=== PATIENT | male | born 1960 | race African-American/Black ===

== ENCOUNTER 2017-09-04 10:30 | Inpatient (IN) | payer OTHER ==
[~2017-09-04] VITALS: Ht 167.6 cm; Wt 79.8 kg
[~2017-09-04 10:30] MED LIST: MEDROLPACK PO; NEURONTIN600 MG PO
[2017-09-04] MEDS ORDERED: HUMALOG100 UNIT/1 (12:10)
[2017-09-04] MEDS ORDERED: ASA81 MG PO (12:11)
[2017-09-04] MEDS ORDERED: PERCOCET 10-321 EACH PO (12:11)
[2017-09-12] MEDS ORDERED: DOCUSATE SODIU100 MG PO (09:12)
[2017-09-12] MEDS ORDERED: CLONAZEPAM1 MG PO (09:13)
[2017-09-12] MEDS ORDERED: PERCOCET 5-3251 EACH PO (09:13)
== END 2017-09-12 12:33 | disposition home or self-care (01) | DRG 472 ==
LOC: PED 09-11 04:19 → O/R 09-11 04:19 → SURH 09-11 10:00 → PED 09-11 17:28
PROVIDERS: Orthopaedic Surgery Orthopaedic Surgery of the Spine
PROC: 0RG20A0 Fusion of 2 or more Cervical Vertebral Joints with Interbody Fusion Device, Anterior Approach, Anterior Column, Open Approach (ICD-10-PCS; 2017-09-11)
PROC: 0RT30ZZ Resection of Cervical Vertebral Disc, Open Approach (ICD-10-PCS; principal; 2017-09-11 10:00)
DX: M47.12 Other spondylosis with myelopathy, cervical region (principal); M50.023 Cervical disc disorder at C6-C7 level with myelopathy; I10 Essential (primary) hypertension; E11.9 Type 2 diabetes mellitus without complications; K59.09 Other constipation; G24.3 Spasmodic torticollis

== ENCOUNTER 2017-12-24 08:56 | Emergency (ER) | payer OTHER ==
[~2017-12-24] VITALS: Ht 167.6 cm; Wt 79.4 kg
[~2017-12-24 08:56] MED LIST changes: +ASA81 MG PO; +CLONAZEPAM1 MG PO; +DOCUSATE SODIU100 MG PO; +HUMALOG100 UNIT/1; +PERCOCET 10-321 EACH PO; +PERCOCET 5-3251 EACH PO
== END 2017-12-24 11:51 | disposition home or self-care (01) ==
LOC: ER 08:56
DX: N20.9 Urinary calculus, unspecified (principal)

== ENCOUNTER 2020-03-09 07:22 | Emergency (ER) | payer OTHER ==
[~2020-03-09] VITALS: Ht 167.6 cm; Wt 76.7 kg
[2020-03-09] MEDS ORDERED: TRAMADOL HCL50 MG PO (07:34)
[2020-03-09] MEDS ORDERED: ADMELOG100 UNIT/1 SQ (07:34)
[2020-03-09] MEDS ORDERED: ROSUVASTATIN CA40 MG PO (07:34)
== END 2020-03-09 14:05 | disposition home or self-care (01) ==
LOC: ER 07:22
DX: J32.8 Other chronic sinusitis (principal); N39.0 Urinary tract infection, site not specified; Z03.818 Encounter for observation for suspected exposure to other biological agents ruled out

== ENCOUNTER → 2020-05-13 | Outpatient (CLI) | payer OTHER ==
[~2020-05-13] MED LIST changes: +ADMELOG100 UNIT/1 SQ; +ROSUVASTATIN CA40 MG PO; +TRAMADOL HCL50 MG PO
== END | disposition home or self-care (01) ==
LOC: RAD 08:48 → RX STUDY 10:15
PROVIDERS: ATTEND Family Medicine Addiction Medicine
DX: K22.8 Other specified diseases of esophagus (principal); H90.3 Sensorineural hearing loss, bilateral; J32.4 Chronic pansinusitis; R13.19 Other dysphagia

== ENCOUNTER 2021-06-27 13:29 | Emergency (ER) | payer OTHER ==
[~2021-06-27] VITALS: Ht 193 cm; Wt 78.9 kg
[2021-06-27] MEDS ORDERED: OXYC1TAB9 PO (14:00)
[2021-06-27] MEDS ORDERED: TRAMADOL HCL50 MG PO (15:52)
== END 2021-06-27 16:08 | disposition home or self-care (01) ==
LOC: ER 13:29
DX: S20.229A Contusion of unspecified back wall of thorax, initial encounter (principal); W10.9XXA Fall (on) (from) unspecified stairs and steps, initial encounter; Y93.9 Activity, unspecified; Y92.019 Unspecified place in single-family (private) house as the place of occurrence of the external cause

== ENCOUNTER 2021-08-25 11:29 | Emergency (ER) | payer OTHER ==
[~2021-08-25] VITALS: Ht 167.6 cm; Wt 78.0 kg
[~2021-08-25 11:29] MED LIST changes: +OXYC1TAB9 PO
== END 2021-08-25 21:46 | disposition home or self-care (01) ==
LOC: ER 11:29
DX: R10.32 Left lower quadrant pain (principal); E11.9 Type 2 diabetes mellitus without complications; Z79.4 Long term (current) use of insulin; Z88.8 Allergy status to other drugs, medicaments and biological substances; Z91.018 Allergy to other foods; N45.3 Epididymo-orchitis

== ENCOUNTER 2022-04-07 18:22 | Emergency (ER) | payer OTHER ==
[~2022-04-07] VITALS: Ht 167.6 cm; Wt 79.8 kg
== END 2022-04-07 23:30 | disposition home or self-care (01) ==
LOC: ER 18:22
DX: M94.0 Chondrocostal junction syndrome [Tietze] (principal); E11.9 Type 2 diabetes mellitus without complications; Z79.84 Long term (current) use of oral hypoglycemic drugs; Z88.1 Allergy status to other antibiotic agents

== ENCOUNTER 2022-08-11 11:40 | Inpatient (IN) | payer OTHER ==
[~2022-08-11] VITALS: Ht 167.6 cm; Wt 79.8 kg
[2022-08-12] MEDS ORDERED: PERCOCE PO (11:04)
[2022-08-18] MEDS ORDERED: COLACE100 MG PO (09:38)
[2022-08-18] MEDS ORDERED: MEDROLPACK PO (09:38)
== END 2022-08-19 13:45 | disposition home or self-care (01) | DRG 473 ==
LOC: O/R 08-18 08:48 → SURG 08-18 10:30 → PED 08-18 13:24 → SURG 08-18 18:15 → PED 08-19 13:45
PROVIDERS: ADMIT Orthopaedic Surgery Orthopaedic Surgery of the Spine; ATTEND Orthopaedic Surgery Orthopaedic Surgery of the Spine
PROC: 0RT50ZZ Resection of Cervicothoracic Vertebral Disc, Open Approach (ICD-10-PCS; 2022-08-18)
PROC: 07DS0ZZ Extraction of Vertebral Bone Marrow, Open Approach (ICD-10-PCS; 2022-08-18)
PROC: 0RG40A0 Fusion of Cervicothoracic Vertebral Joint with Interbody Fusion Device, Anterior Approach, Anterior Column, Open Approach (ICD-10-PCS; principal; 2022-08-18 18:15)
DX: M43.03 Spondylolysis, cervicothoracic region (principal); E11.9 Type 2 diabetes mellitus without complications; M51.34 Other intervertebral disc degeneration, thoracic region; Z79.4 Long term (current) use of insulin

== ENCOUNTER 2023-03-25 17:59 | Emergency (ER) | payer OTHER ==
[~2023-03-25] VITALS: Ht 167.6 cm; Wt 78.9 kg
[~2023-03-25 17:59] MED LIST changes: +COLACE100 MG PO; +PERCOCE PO
== END 2023-03-25 21:10 | disposition home or self-care (01) ==
LOC: ER 18:00
DX: M54.2 Cervicalgia (principal); M25.519 Pain in unspecified shoulder; Z88.1 Allergy status to other antibiotic agents; Z16.23 Resistance to quinolones and fluoroquinolones
CPT/HCPCS: 72040; 73020; 96372; 99283; J1885; J2360

== ENCOUNTER 2023-11-15 21:28 | Emergency (ER) | payer OTHER ==
[~2023-11-15] VITALS: Ht 167.6 cm; Wt 78.9 kg
[2023-11-15 23:09] LABS: HEMATOCRIT 43.5 % (39.0-48.0); HEMOGLOBIN 14.8 g/dL (13-16.00); MEAN CELL VOLUME 89.2 fL (80.0-100.00); MEAN CORPUSCULAR HEMOGLOBIN 30.3 pg (27.00-32.0); PLATELET COUNT 290 K/uL (150-450); RED BLOOD COUNT 4.87 M/uL (4.00-6.00)
[2023-11-15 23:09] LABS: PH,URINE 6.5 (5.0-8.0); URINE APPEARANCE Clear; URINE BILIRRUBIN Negative (NEGATIVE); URINE BLOOD Negative; URINE COLOR Yellow; URINE KETONE Trace (NEGATIVE); URINE LEUKOCYTE Negative; URINE NITRATE Negative; URINE PROTEIN Negative (NEGATIVE)
[2023-11-15 23:13] LABS: URINE BACTERIA 6.2 uL (0.0-1933); URINE RBC 6.7 uL (0.0-20.8)
[2023-11-15 23:41] LABS: URINE CAST 0.15 uL (0.0-1.40); URINE EPITHELIAL CELLS 0.6 uL (0.0-38.8); URINE GLUCOSE >=1000 MG/DL (NEGATIVE); URINE WBC 1.5 uL (0.0-23.2)
[2023-11-15] MEDS ORDERED: KETOROLAC TROMETHAMINE 30 MG VIAL IV ONE (23:45)
[2023-11-15 23:51] LABS: ALBUMIN 4.1 gm/dL (3.4-5.0); BILIRUBIN TOTAL 0.58 mg/dL (0.3-1.2); CALCIUM 9.2 mg/dL (8.5-10.1); CREATININE SERUM 1.1 mg/dL (0.70-1.30); GFR 67.18; POTASSIUM 4.2 mEq/L (3.5-5.1); PROSTATIC SPECIFIC ANTIGEN 0.711 NG/ML (0.010-4.00); TOTAL PROTEIN 8.1 gm/dL (6.4-8.2)
[2023-11-15] MEDS ORDERED: KETOROLAC TROMETHAMINE 30 MG VIAL ONE (23:59)
== END 2023-11-16 00:04 | disposition home or self-care (01) ==
LOC: ER 21:30
PROVIDERS: General Practice
DX: R10.9 Unspecified abdominal pain (principal); Z88.8 Allergy status to other drugs, medicaments and biological substances; E11.65 Type 2 diabetes mellitus with hyperglycemia; Z79.4 Long term (current) use of insulin; I10 Essential (primary) hypertension
CPT/HCPCS: 36415; 96372; 99282; J1885

== ENCOUNTER 2024-06-18 15:35 | Emergency (ER) | payer OTHER ==
[~2024-06-18] VITALS: Ht 167.6 cm; Wt 76.7 kg
[2024-06-18] MEDS ORDERED: EZETIMIBE10 MG PO (16:07)
[2024-06-18 16:08] VITALS: BP 132/68; O2SAT 98
[2024-06-18] MEDS ORDERED: MECLIZINE HCL 25 MG TABLET PO STA (18:01)
[2024-06-18] MEDS ORDERED: DEXAMETHASONE SODIUM PHOSPHATE 4 MG/ML VIAL IM STA (18:01)
[2024-06-18] MEDS ORDERED: DEXAMETHASONE SODIUM PHOSPHATE 4 MG/ML VIAL ONE (18:04)
[2024-06-18] MEDS ORDERED: MECLIZINE HCL 25 MG TABLET PO ONE (18:04)
[2024-06-18 18:31] LABS: HEMATOCRIT 42.6 % (39.0-48.0); HEMOGLOBIN 14.5 g/dL (13-16.00); MEAN CELL VOLUME 89.4 fL (80.0-100.00); MEAN CORPUSCULAR HEMOGLOBIN 30.5 pg (27.00-32.0); MEAN CORPUSCULAR HGB CONC 34.1 g/dl (32.0-36.0); PLATELET COUNT 324 K/uL (150-450); RED BLOOD COUNT 4.76 M/uL (4.00-6.00); RED CELL DISTRIBUTION WIDTH 14.6 % (11.5-14.5)
[2024-06-18 18:33] LABS: ERYTHROCYTE SEDIMENTATION RATE 30 mm/hr
[2024-06-18 18:56] LABS: ALBUMIN 3.9 gm/dL (3.4-5.0); BILIRUBIN TOTAL 0.39 mg/dL (0.3-1.2); CALCIUM 9.2 mg/dL (8.5-10.1); CREATININE SERUM 0.96 mg/dL (0.70-1.30); GFR 78.37; GLOBULINA 3.9 G/DL (2.4-3.5); POTASSIUM 4.4 mEq/L (3.5-5.1); TOTAL PROTEIN 7.8 gm/dL (6.4-8.2)
[2024-06-18 18:57] LABS: C-REACTIVE PROTEIN 0.83 MG/DL (0.00-0.29)
[2024-06-18] MEDS ORDERED: CARBAMAZEPINE100 M1 PO (19:42)
[2024-06-18] MEDS ORDERED: MOTION SICKNESS25 M1 PO (19:42)
== END 2024-06-18 19:47 | disposition home or self-care (01) ==
LOC: ER 15:36
PROVIDERS: General Practice
DX: R42 Dizziness and giddiness (principal); M79.2 Neuralgia and neuritis, unspecified; E11.9 Type 2 diabetes mellitus without complications; E78.5 Hyperlipidemia, unspecified; Z88.1 Allergy status to other antibiotic agents

== ENCOUNTER 2024-11-06 16:59 | Emergency (ER) | payer OTHER ==
[~2024-11-06] VITALS: Ht 167.6 cm; Wt 78.9 kg
[~2024-11-06 16:59] MED LIST changes: +CARBAMAZEPINE100 M1 PO; +EZETIMIBE10 MG PO; +MOTION SICKNESS25 M1 PO
[2024-11-06 17:16] VITALS: BP 147/75; O2SAT 98
[2024-11-06] MEDS ORDERED: FAMOTIDINE/PF 20 MG in 0.9 % SODIUM CHLORIDE 8 ML IV PUSH STA (17:55)
[2024-11-06] MEDS ORDERED: ONDANSETRON HCL 2 MG/ML VIAL IV ONE (18:00)
[2024-11-06 18:23] LABS: BASO % 0.3 % (0.1-1.2); EOS # 0.06 (0.04-0.54); EOS % 0.7 % (0.7-7.0); LYMPH # 1.63 (1.18-3.74); LYMPH % 18.0 % (19.3-53.1); MEAN PLATELET VOLUME 9.40 fl (9.4-12.4); MONO # 0.41 (0.24-0.82); MONO % 4.5 % (4.7-12.5); NEUT # 6.90 (1.56-6.13); NEUT % 76.3 % (34.0-71.1); RED CELL DISTRIBUTION WIDTH 12.7 % (11.6-14.4)
[2024-11-06 18:43] LABS: INR 1.07
[2024-11-06 18:48] LABS: ALT/SGPT 20.0 U/L (12-78); AST/SGOT 16.0 U/L (15-37); BILIRUBIN TOTAL 0.47 mg/dL (0.3-1.2); BUN CREA RATIO 9.0 (7.0-25.0); CREATININE SERUM 1.05 mg/dL (0.70-1.30); GFR 70.67; GLOBULINA 4.9 G/DL (2.4-3.5); GLUCOSE FASTING 149.0 mg/dL (65-100); OSMOLALITY SERUM 288.0 MOSM/KG (275-295)
[2024-11-06] MEDS ORDERED: KETOROLAC TROMETHAMINE 60 MG VIAL IM ONE (19:45)
[2024-11-06] MEDS ORDERED: ORPHENADRINE CITRATE 30 MG/ML AMPUL IM ONE (19:45)
== END 2024-11-06 20:10 | disposition home or self-care (01) ==
LOC: ER 16:59
PROVIDERS: General Practice
DX: S39.82XA Other specified injuries of lower back, initial encounter (principal); W19.XXXA Unspecified fall, initial encounter; Y93.89 Activity, other specified; Y92.098 Other place in other non-institutional residence as the place of occurrence of the external cause; Y99.8 Other external cause status; E11.9 Type 2 diabetes mellitus without complications; Z79.4 Long term (current) use of insulin; Z88.1 Allergy status to other antibiotic agents

== ENCOUNTER → 2025-03-11 | Emergency (ER) | payer OTHER ==
[~2025-03-11] VITALS: Ht 167.6 cm; Wt 72.6 kg
[~2025-03-11] MED LIST changes: +DEXAMETHASONE SODIUM PHOSPHATE 4 MG/ML VIAL IM STA; +DEXAMETHASONE SODIUM PHOSPHATE 4 MG/ML VIAL ONE; +KETOROLAC TROMETHAMINE 30 MG VIAL IM STA; +KETOROLAC TROMETHAMINE 30 MG VIAL ONE; +ORPHENADRINE CITRATE 30 MG/ML AMPUL IM STA; +ORPHENADRINE CITRATE 30 MG/ML AMPUL ONE
[2025-03-11 16:49] LABS: BASO % 0.9 % (0.1-1.2); EOS # 0.09 (0.04-0.54); EOS % 2.0 % (0.7-7.0); LYMPH # 2.28 (1.18-3.74); LYMPH % 50.6 % (19.3-53.1); MEAN PLATELET VOLUME 9.20 fl (9.4-12.4); MONO # 0.47 (0.24-0.82); MONO % 10.4 % (4.7-12.5); NEUT # 1.62 (1.56-6.13); NEUT % 35.9 % (34.0-71.1); RED CELL DISTRIBUTION WIDTH 14.0 % (11.6-14.4)
[2025-03-11 17:49] LABS: BUN CREA RATIO 10.0 (7.0-25.0); CREATININE SERUM 0.8 mg/dL (0.70-1.30); GFR 96.72; GLUCOSE FASTING 127.0 mg/dL (65-100); OSMOLALITY SERUM 289.0 MOSM/KG (275-295)
== END | disposition home or self-care (01) ==
LOC: ER 14:05
PROVIDERS: General Practice
DX: M25.561 Pain in right knee (principal); M79.604 Pain in right leg; M79.671 Pain in right foot; E11.9 Type 2 diabetes mellitus without complications; Z79.4 Long term (current) use of insulin; Z20.822 Contact with and (suspected) exposure to COVID-19; Z88.8 Allergy status to other drugs, medicaments and biological substances
CPT/HCPCS: 36415; 73560; 73590; 73610; 73630; 96372; 99284; J1100; J1885; J2360